=== PATIENT | male | born 1980 | race Hispanic/Latino ===

== ENCOUNTER 2025-05-13 18:01 | Emergency (ER) | payer BC, SELFPAY ==
[2025-05-13] MEDS ORDERED: ONDANSETRON 4 MG/2 ML VIAL ONE (19:33)
[2025-05-13] MEDS ORDERED: CEFTRIAXONE 1000 MG/VIAL ONE (19:33)
[2025-05-13] MEDS ORDERED: MORPHINE 4 MG/ML SYR ONE (19:34)
[2025-05-13] MEDS ORDERED: NA CHLORIDE 0.9% 1,000 ML ONE (19:34)
--- NOTE | 2025-05-13 19:34 | RAD REPORT ---
EXAMINATION: XR Tib Fib Left CLINICAL INDICATION: Male, 44 years old. SWELLING TECHNIQUE: 2 view radiograph of the left tibia and fibula were obtained. COMPARISON: No prior exam. FINDINGS: No evidence of fracture or dislocation. Normal alignment. No evidence of arthropathy or oth er focal bone lesion. Soft tissues are unremarkable. IMPRESSION: No acute or significant abnormalities.
[2025-05-13 19:40] LABS: Absolute Lymphocytes (CBC) 1.4 K/uL (0.7-4.9); Hematocrit 49.3 % (39.6-49.0); Hemoglobin 16.6 g/dL (13.6-17.9); MCH 30.4 pg (27.0-35.0); MCHC 33.7 g/dL (32.0-36.0); MCV 90.4 fL (80-100); MPV 8.4 fL (7.6-11.3); Nucleated RBC Absolute Count 0.0 (0-0); Nucleated Red Blood Cells % 0.1 % (0-0); RBC Red Blood Cell Count 5.45 M/uL (4.33-5.43); White Blood Count 9.40 thou/uL (4.3-10.9)
[2025-05-13 20:41] LABS: ALT/SGPT 71.0 U/L (16-61); Albumin 3.7 g/dL (3.4-5.0); Albumin/Globulin Ratio 1.0 (1.1-1.8); Alkaline Phosphatase 59.0 U/L (45-117); Anion Gap 7.9 mEq/L (5.0-15.0); BUN Blood Urea Nitrogen 11.0 mg/dL (7-18); Globulin 3.7 g/dL (2.3-3.5); Glucose Level 95.0 mg/dL (74-106)
[2025-05-13 20:43] LABS: AST/SGOT 42.0 U/L (15-37); Potassium 4.9 mEq/L (3.5-5.1)
--- NOTE | 2025-05-13 20:45 | ER ---
Nurse's Notes [facility] Name: Andrew Rivera Age: 44 yrs Sex: Male : 1980 Arrival Date: 05/13/2025 Time: 18:01 Bed 15 Private MD: Diagnosis: Cellulitis of left lower limb Presentation: 05/13 18:14 Chief complaint: Patient states: earlier this morning had some pain and redness in left iw be area, the redness seems to have spread and feels hot to touch. Coronavirus screen: At this time, the client does not indicate any symptoms associated with coronavirus-19. Ebola Screen: No symptoms or risks identified at this time. Initial Sepsis Screen: Does the patient meet any 2 criteria? No. Patient's initial sepsis screen is negative. Does the patient have a suspected source of infection? No. Patient's initial sepsis screen is negative. Risk Assessment: Do you want to hurt yourself or someone else? Patient reports no desire to harm self or others. Onset of symptoms was May 13, 2025. 18:14 Method Of Arrival: Ambulatory iw 18:14 Acuity: NICOL 3 iw Historical: - Allergies: 18:16 No Known Allergies; iw - Home Meds: 18:16 None [Active]; iw - PMHx: 18:16 None; iw - PSHx: 18:16 None; iw - Immunization history:: Adult Immunizations. - Infectious Disease History:: Denies. - Social history:: Smoking status: Reported history of juuling and/or vaping. Screenin:20 [facility] ED Fall Risk Assessment (Adult) History of falling in the last 3 months, kj2 including since admission No falls in past 3 months (0 pts) Confusion or Disorientation No (0 pts) Intoxicated or Sedated No (0 pts) Impaired Gait No (0 pts) Mobility Assist Device Used No (0 pt) Altered Elimination No (0 pt) Score/Fall Risk Level 0 - 2 = Low Risk Maintained a safe environment, Hourly rounding (assess needs \T\ fall precautionary measures) done. Abuse screen: Denies threats or abuse. Denies injuries from another. Nutritional screening: No deficits noted. Tuberculosis screening: No symptoms or risk factors identified. Assessment: 19:20 General: Appears in no apparent distress. Behavior is cooperative. Pain: Complains of kj2 pain in left be Pain currently is 7 out of 10 on a pain scale. Neuro: Level of Consciousness is awake, alert, obeys commands, Oriented to person, place, time, situation. Cardiovascular: Patient's skin is warm and dry. Respiratory: Airway is patent Respiratory effort is even, unlabored. GI: No signs and/or symptoms were reported involving the gastrointestinal system. : No signs and/or symptoms were reported regarding the genitourinary system. 19:55 Reassessment: Patient appears in no apparent distress at this time. Patient and/or kj2 family updated on plan of care and expected duration. Pain level reassessed. Patient is alert, oriented x 3, equal unlabored respirations, skin warm/dry/pink. 21:00 Reassessment: Patient appears in no apparent distress at this time. Patient and/or kj2 family updated on plan of care and expected duration. Pain level reassessed. Patient is alert, oriented x 3, equal unlabored respirations, skin warm/dry/pink. Vital Signs: 18:14 BP 153 / 97; Pulse 92; Resp 16; Pulse Ox 100% on R/A; Weight 97.52 kg; Height 5 ft. 11 iw in. ; Pain 8/10; 19:54 BP 139 / 78; Pulse 74; Resp 18; Pulse Ox 100% on R/A; kj2 21:18 BP 136 / 74; Pulse 70; Resp 18; Temp 98; Pulse Ox 100% on R/A; kj2 18:14 Body Mass Index 29.99 (97.52 kg, 180.34 cm) iw 18:14 Pain Scale: Adult iw ED Course: 18:04 Patient arrived in ED. al6 18:10 Giuliano Hamilton [facility]C [facility]. dr5 18:16 Triage completed. iw 18:17 Arm band placed on. iw 19:19 Tib Fib Left In Process Unspecified. EDMS 19:20 Patient has correct armband on for positive identification. Bed in low position. Call kj2 light in reach. Adult w/ patient. Provided Education on: call light. 19:21 Yadira Potts, RN is Primary Nurse. kj2 19:35 CMP Sent. ha1 19:36 CBC with Diff Sent. ha1 19:36 Inserted saline lock: 20 gauge in left forearm, using aseptic technique. Blood ha1 collected. Flushed with 10 mL NS. 19:58 Lavon Babni MD is Attending Physician. dr5 21:19 No provider procedures requiring assistance completed. IV discontinued, intact, kj2 bleeding controlled, No redness/swelling at site. Pressure dressing applied. Administered Medications: 19:52 Drug: NS 0.9% IV 1000 ml IV at 1000 ml once; to be given as a bolus over 60 minutes kj2 Route: IV; Rate: 1000 ml; Site: left forearm; 21:20 Follow up: IV Status: Completed infusion; IV Intake: 1000ml kj2 19:52 Drug: Rocephin IV 1 grams IV at per protocol once; Given slow IV push per pharmacy kj2 instructions Route: IV; Rate: per protocol; Site: left forearm; 21:20 Follow up: IV Status: Completed infusion kj2 19:52 Drug: morphine IVP or IV 4 mg IVP once over 4 mins Route: IVP; Infused Over: 4 mins; kj2 Site: left forearm; 21:20 Follow up: Response: No adverse reaction kj2 19:52 Drug: Ondansetron IVP 4 mg IVP once; over 2 minutes Route: IVP; Site: left forearm; kj2 21:19 Follow up: Response: No adverse reaction kj2 Medication: 21:19 VIS not applicable for this client. kj2 Intake: 21:20 IV: 1000ml; Total: 1000ml. kj2 Outcome: 20:45 Discharge ordered by . dr5 21:19 Discharged to home ambulatory, with family, kj2 21:19 Condition: stable 21:19 Discharge instructions given to patient, Instructed on discharge instructions, follow up and referral plans. Demonstrated understanding of instructions, follow-up care, medications, Prescriptions given X 3, 21:20 Patient left the ED. kj2 Signatures: Dispatcher [employer] EDMS Mary Berger RN RN iw Samra Townsend RN RN ha1 Yadira Potts RN RN kj2 Giuliano Hamilton, INFANTRY INDIRECT FIRE CREWMEMBER-C INFANTRY INDIRECT FIRE CREWMEMBER-[facility]5 Josiane Reilly Corrections: (The following items were deleted from the chart) 18:16 18:16 Allergies: Phenergan; hallucinations; iw iw 18:17 18:14 BP 153 / 97; Pulse 92bpm; Resp 16bpm; Pulse Ox 100% RA; iw iw
--- NOTE | 2025-05-13 20:45 | EDPHYS ---
Physician Documentation [facility] Name: Andrew Rivera Age: 44 yrs Sex: Male : 1980 Arrival Date: 05/13/2025 Time: 18:01 Bed 15 Private MD: ED Physician Lavon Babin HPI: 05/13 20:45 This 44 yrs old Male presents to ER via Ambulatory with complaints of Leg Pain dr5 - and swelling. 20:45 The complaints affect the left be. Onset: The symptoms/episode began/occurred dr5 acutely. Patient is a 44-year-old male with no past with history coming in with left lower extremity pain and redness to left anterior be that started this afternoon. Patient does not know if he fell or had insect bite. Patient states that he feels like the area is hot and and infection is starting.. Historical: - Allergies: 18:16 No Known Allergies; iw - Home Meds: 18:16 None [Active]; iw - PMHx: 18:16 None; iw - PSHx: 18:16 None; iw - Immunization history:: Adult Immunizations. - Infectious Disease History:: Denies. - Social history:: Smoking status: Reported history of juuling and/or vaping. ROS: 20:45 Constitutional: as per hpi dr5 Exam: 20:45 Constitutional: This is a well developed, well nourished patient who is awake, alert, dr5 and in no acute distress. Head/Face: Normocephalic, atraumatic. Eyes: Pupils equal round and reactive to light, extra-ocular motions intact. Lids and lashes normal. Conjunctiva and sclera are non-icteric and not injected. Cornea within normal limits. Periorbital areas with no swelling, redness, or edema. Neck: Trachea midline, no thyromegaly or masses palpated, and no cervical lymphadenopathy. Supple, full range of motion without nuchal rigidity, or vertebral point tenderness. No Meningismus. Chest/axilla: Normal chest wall appearance and motion. Nontender with no deformity. No lesions are appreciated. Cardiovascular: Regular rate and rhythm with a normal S1 and S2. Normal PMI, no JVD. No pulse deficits. Respiratory: Lungs have equal breath sounds bilaterally, clear to auscultation. No rales, rhonchi or wheezes noted. No increased work of breathing, no retractions or nasal flaring. Back: No spinal tenderness. No costovertebral tenderness. Full range of motion. MS/ Extremity: Pulses equal, no cyanosis. Neurovascular intact. Full, normal range of motion. Neuro: Awake and alert, GCS 15, oriented to person, place, time, and situation. Cranial nerves II-XII grossly intact. Motor strength 5/5 in all extremities. Sensory grossly intact. Cerebellar exam normal. Normal gait. 20:45 Skin: cellulitis, that is moderate, on the left be, Vital Signs: 18:14 BP 153 / 97; Pulse 92; Resp 16; Pulse Ox 100% on R/A; Weight 97.52 kg; Height 5 ft. 11 iw in. ; Pain 8/10; 19:54 BP 139 / 78; Pulse 74; Resp 18; Pulse Ox 100% on R/A; kj2 21:18 BP 136 / 74; Pulse 70; Resp 18; Temp 98; Pulse Ox 100% on R/A; kj2 18:14 Body Mass Index 29.99 (97.52 kg, 180.34 cm) iw 18:14 Pain Scale: Adult iw MDM: 18:11 Medical Screening Exam initiated dr5 20:45 Differential diagnosis: dislocation, open fracture, Osteomyelitis, cellulitis. Data dr5 reviewed: vital signs, nurses notes, lab test result(s), CBC, white blood cell count, hemoglobin, hematocrit, platelets, electrolytes, sodium, potassium, chloride, serum bicarbonate, BUN, creatinine, serum glucose, radiologic studies, plain films. Consideration of Admission/Observation Escalation of care including admission/observation considered. Escalation considered patient found to have osteomyelitis. I considered the following discharge prescriptions or medication management in the emergency department I discussed and recommended Over The Counter medications, Medications were administered in the Emergency Department. See MAR. Independent interpretation of the following test(s) in the Emergency Department X-Ray: My interpretation is Independent interpretation of x-ray does not reveal osteomyelitis. Historians other than the Patient: Parent: Mother. Care significantly affected by the following Social Determinants of Health: Poor access to healthcare and/or lack of insurance, Poor access to transportation, Problems related to employment. Counseling: I had a detailed discussion with the patient and/or guardian regarding the historical points, exam findings, and any diagnostic results supporting the discharge/admit diagnosis, the presence of at least one elevated blood pressure reading (>120/80) during this emergency department visit, lab results, radiology results, the need for outpatient follow up, for definitive care, a family practitioner, to return to the emergency department if symptoms worsen or persist or if there are any questions or concerns that arise at home. Medication response: Rocephin. Response to treatment: No reaction. Special discussion: I discussed with the patient/guardian in detail that at this point there is no indication for admission to the hospital. It is understood, however, that if the symptoms persist or worsen the patient needs to return immediately for re-evaluation. Based on the history and exam findings, there is no indication for further emergent testing or inpatient evaluation. I discussed with the patient/guardian the need to see the primary care provider for further evaluation of the symptoms. ED course: Will have patient follow-up primary care doctor. All question answered. Rocephin IV given in ER. Patient's labs are stable. No osteomyelitis noted on x-ray. pain has pain has improved and feel much better. Strict ER precautions given.. 05/13 18:33 Order name: CBC with Diff; Complete Time: 19:55 dr5 05/13 18:33 Order name: CMP; Complete Time: 20:45 dr5 05/13 19:00 Order name: Tib Fib Left; Complete Time: 19:42 EDMS 05/13 19:22 Order name: IV Saline Lock; Complete Time: 19:35 rk3 05/13 19:45 Order name: Misc. Order: RECOLLECT GREEN TOP; Complete Time: 20:16 rv1 Administered Medications: 19:52 Drug: NS 0.9% IV 1000 ml IV at 1000 ml once; to be given as a bolus over 60 minutes kj2 Route: IV; Rate: 1000 ml; Site: left forearm; 21:20 Follow up: IV Status: Completed infusion; IV Intake: 1000ml kj2 19:52 Drug: Rocephin IV 1 grams IV at per protocol once; Given slow IV push per pharmacy kj2 instructions Route: IV; Rate: per protocol; Site: left forearm; 21:20 Follow up: IV Status: Completed infusion kj2 19:52 Drug: morphine IVP or IV 4 mg IVP once over 4 mins Route: IVP; Infused Over: 4 mins; kj2 Site: left forearm; 21:20 Follow up: Response: No adverse reaction kj2 19:52 Drug: Ondansetron IVP 4 mg IVP once; over 2 minutes Route: IVP; Site: left forearm; kj2 21:19 Follow up: Response: No adverse reaction kj2 Disposition: 05/14 08:30 Co-signature as Attending Physician, Lavon Babin MD I agree with the assessment and billy plan of care. Disposition Summary: 05/13/25 20:45 Discharge Ordered Notes: Location: Home dr5 Condition: Stable dr5 Diagnosis - Cellulitis of left lower limb dr5 Followup: dr5 - With: Emergency Department - When: As needed - Reason: Worsening of condition Followup: dr5 - With: Private Physician - When: 1 - 2 days - Reason: Recheck today's complaints, Continuance of care, Re-evaluation by your physician Discharge Instructions: - Discharge Summary Sheet dr5 - Cellulitis, Adult dr5 Forms: - Medication Reconciliation Form dr5 - Antibiotic Education dr5 - Prescription Opioid Use dr5 - Patient Portal Instructions dr5 - Leadership Thank You Letter dr5 Prescriptions: - Cephalexin 500 mg Oral Capsule - take 1 capsule ORAL route every 12 hours for 10 days; 20 capsule; Refills: 0, dr5 Product Selection Permitted - Tramadol 50 mg Oral Tablet - take 1 tablet ORAL route every 8 hours as needed; 12 tablet; Refills: 0, dr5 Product Selection Permitted - Bactrim DS 800-160 mg Oral Tablet - take 1 tablet ORAL route every 12 hours for 7 days; 14 tablet; Refills: 0, dr5 Product Selection Permitted Signatures: Dispatcher [employer] EDLavon Wayne MD MD cha Williams, Irene, RN EVERETTE iw Gay Wagoner rv1 Yadira Potts RN RN kj2 Giuliano Hamilton, SEUN-C NATURAL SCIENCES DEPARTMENT CHAIR-[facility]5 Quincy Garsia rk3 Corrections: (The following items were deleted from the chart) 05/13 18:16 18:16 Allergies: Phenergan; hallucinations; iw iw 18:33 18:33 CBC+H.LAB.BRZ ordered. EDMS EDMS 18:33 18:33 COMPREHENSIVE METABOLIC PANEL+C.LAB.BRZ ordered. EDMS EDMS 18:34 18:33 Tib Fib Left Compar+RAD.RAD.BRZ ordered. EDMS EDMS
[2025-05-14 02:28] VITALS: O2SAT 100
[2025-05-14 02:40] VITALS: BP 136/74; TEMP 98
== END 2025-05-13 21:20 | disposition home or self-care (01) ==
LOC: ER 18:01
DX: L03.116 Cellulitis of left lower limb (principal); F17.290 Nicotine dependence, other tobacco product, uncomplicated
CPT/HCPCS: 96365; 85025; 36415; 80053; 73590; 96375; 99284; J2405; J7030; J0696